=== PATIENT | male | born 1990 | race Caucasian/White ===

== ENCOUNTER 2018-12-22 03:48 | Emergency (ER) | payer OTHER ==
[~2018-12-22] VITALS: Ht 170.2 cm; Wt 66.0 kg
[~2018-12-22 03:48] MED LIST: AMOXICILLIN875 MG PO; NO HOME MEDS
[2018-12-22] MEDS ORDERED: AMOXICILLIN500 MG PO (04:11)
[2018-12-22 04:13] VITALS: BP 140/89
== END 2018-12-22 04:15 | disposition home or self-care (01) ==
LOC: ED 03:48
DX: H66.92 Otitis media, unspecified, left ear (principal); J06.9 Acute upper respiratory infection, unspecified; H92.02 Otalgia, left ear; R50.9 Fever, unspecified; R09.81 Nasal congestion; J34.89 Other specified disorders of nose and nasal sinuses; F17.210 Nicotine dependence, cigarettes, uncomplicated